=== PATIENT | male | born 1975 | race Caucasian/White ===

== ENCOUNTER → 2019-02-17 | Outpatient (CLI) | payer OTHER ==
[2014-07-30 17:40] VITALS: BP 139/79
--- NOTE | 2019-02-17 15:59 | KCIC ---
Indications: Patient fell on February 08, 2019. Back pain and neck pain. Three-view thoracic spine series: No compression fracture discitis or lytic process is evident. Three-view lumbar spine series: No compression fracture or discitis or lytic process or anterolisthesis is evident. The transverse processes are intact. Laminectomy defect of the right side of L5 is evident. Mild degenerative endplate spurring is seen throughout the lumbar spine. Degenerative disc space narrowing is seen throughout the lumbar spine. Severe degenerative disc space narrowing is seen at the lumbosacral junction. IMPRESSION: No acute compression fracture of the thoracic or lumbar spine. 3 VIEW STUDY OF THE SACRUM AND COCCYX: No acute fracture or displacement is evident. No lytic process is seen. IMPRESSION: No acute fracture. AP VIEW OF THE PELVIS: No acute fracture or lytic process or diastases is evident. The hip joints are symmetric. IMPRESSION: No acute fracture. Electronically signed by: Teto Nunez MD (02/17/2019 3:56 PM) [id number]
== END | disposition home or self-care (01) ==
LOC: KCIC 08:47
PROVIDERS: ATTEND Internal Medicine
DX: M48.07 Spinal stenosis, lumbosacral region (principal); M46.06 Spinal enthesopathy, lumbar region; M54.6 Pain in thoracic spine; W19.XXXA Unspecified fall, initial encounter; Y93.89 Activity, other specified; Y92.89 Other specified places as the place of occurrence of the external cause; Y99.8 Other external cause status
CPT/HCPCS: 72072; 72100; 72170; 72220